=== PATIENT | male | born 1960 | race Caucasian/White ===

== ENCOUNTER 2016-05-03 09:20 | Day surgery (SDC) | payer OTHER ==
[~2016-05-03] VITALS: Ht 188 cm; Wt 99.0 kg
[~2016-05-03 09:20] MED LIST: DIPH25CA6 PO; FIBER PO; FISH OIL DR 1,1 EAC1 PO; GLUC500T12 PO; OMEP20TA24 PO; RED600CA2 PO; Sodium Chloride LOK Flush 10 mL Syringe IV PRN; fentaNYL-PF 50 mCg/mL 2 mL Inj IVPUSH PRN
[2016-05-03 09:50] VITALS: BP 135/86; PULSE 61; RESP 16; O2SAT 98
[2016-05-03] MEDS: 0.9% Sodium Chloride 1,000 ML IV PRN ×4 (09:50→10:51)
[2016-05-03 10:59] VITALS: BP 111/73; PULSE 53; RESP 15; O2SAT 93
[2016-05-03 11:07] VITALS: BP 101/66; PULSE 54; RESP 15; O2SAT 94
[2016-05-03 11:17] VITALS: BP 106/59; PULSE 60; RESP 15; O2SAT 94
--- NOTE | 2016-05-03 11:43 | ENDO ---
[address] [address] ENDOSCOPY PROCEDURE PATIENT: TANJA HALL : 1960 MR#: [id number] ADMIT: 05/03/2016 JOB ID: [id number] DATE OF SERVICE: 05/03/2016 PRIMARY PROVIDER: Meena Pena MD. PROCEDURE: Colonoscopy. INDICATIONS: A 55-year-old male who reports for colon cancer screening. He has had many years of intermittent red blood per rectum that he believes is hemorrhoidal in nature. EQUIPMENT: [employer]-H190L. SEDATION: 1. Versed 5 mg. 2. Fentanyl 125 mcg. COMPLICATIONS: None identified. BOWEL PREPARATION: Fair, adequate exam. COMPLICATIONS: None identified. PROCEDURE INFORMATION: After the risks and benefits were explained, written and verbal informed consent was obtained. The patient was brought into the endoscopy suite and placed into the left lateral decubitus position. Sedation was achieved using the above-stated medications with the addition of oxygen via nasal cannula. A digital rectal examination was accomplished and revealed a moderate amount of chronic perianal erythema and excoriation. No mass lesions. Mild internal hemorrhoids could be palpated. The scope was introduced into the rectum and advanced under direct visualization to the level of the cecum, as identified by the appendiceal orifice and ileocecal valve. The scope was slowly withdrawn to carefully examine the mucosa for any defects or lesions. Retroflexed views were accomplished in the rectum. The colon was decompressed. Scope removed from the patient who tolerated the procedure well. FINDINGS: The patient had mild melanosis coli throughout. There were some scattered diverticula in the left colon. Retroflexed views from within the rectum were unremarkable. There was some superficial vascularity associated with mild diffuse hemorrhoidal engorgement. No active bleeding. No significant polyps, mass lesions, or inflammatory features identified throughout the bowel. ENDOSCOPIC DIAGNOSES: 1. Diverticulosis. 2. Hemorrhoids. 3. Perianal irritation. RECOMMENDATIONS: 1. Repeat colonoscopy in 10 years' time, sooner should symptoms warrant. 2. The patient is encouraged to keep the perianal region clean and dry. In the immediate interim, I would recommend a barrier cream such as zinc oxide. 3. If ongoing or recurrent hemorrhoidal engorgement irritation occurs, I would recommend intermittent warm Epsom salt baths. 4. Follow up at GI clinic on an as-needed basis. 5. Continue regular primary care with Dr. Pena.
== END 2016-05-03 23:59 | disposition home or self-care (01) ==
LOC: END 09:20
PROVIDERS: ATTEND Internal Medicine Gastroenterology
DX: Z12.11 Encounter for screening for malignant neoplasm of colon (principal); K57.30 Diverticulosis of large intestine without perforation or abscess without bleeding; K64.9 Unspecified hemorrhoids; K62.5 Hemorrhage of anus and rectum; E78.00 Pure hypercholesterolemia, unspecified; Z87.891 Personal history of nicotine dependence
CPT/HCPCS: 99153; G0121; G0500; J2250; J7030